=== PATIENT | male | born 1940 | race Caucasian/White ===

== ENCOUNTER 2016-11-12 18:51 | Emergency (ER) | payer MEDICARE, OTHER ==
[~2016-11-12 18:51] MED LIST: ASPIRIN1 GM; DIOVAN160 MG; GABAPENTIN250 MG/51; GLIMEPIRIDE1 MG; HYDRALAZINE HCL50 MG; HYDROCHLOROTHIAZ1 GM; LIPITOR; METFORMIN HCL500 M3; METOPROLOL SUCC50 MG; VICTOZA0.6 MG/0.1
== END 2016-11-12 19:38 | disposition home or self-care (01) ==
LOC: SED 18:51
DX: S81.812A Laceration without foreign body, left lower leg, initial encounter (principal); E78.5 Hyperlipidemia, unspecified; E11.9 Type 2 diabetes mellitus without complications; I10 Essential (primary) hypertension; Z23 Encounter for immunization; W45.8XXA Other foreign body or object entering through skin, initial encounter; Y92.009 Unspecified place in unspecified non-institutional (private) residence as the place of occurrence of the external cause
CPT/HCPCS: 90471; 90715; 99283